=== PATIENT | male | born 1980 | race Caucasian/White ===

== ENCOUNTER 2017-12-27 19:07 | Emergency (ER) | payer OTHER ==
[2017-12-27 19:24] VITALS: BP 119/76; PULSE 73; TEMP 97.8; BMI 23.2
--- NOTE | 2017-12-27 19:24 | PDOC ---
Rapid Medical Evaluation Time Seen by Provider: 12/27/17 19:16 Medical Evaluation: 12/27/17 19:16 I have performed a brief in-person person evaluation of the patient. The patient presents with a chief complaint of pain in right groin, lower back x 5 days radiating to right testicle. Also reports having issues with erectile dysfunction. States pain started intermittently and now worse. Pertinent physical exam findings: NAD unlabored breathing, lungs clear bilateral heart s1s2 abdomen non tender + bowel sounds I have ordered the following: urinalysis, The patient will proceed to the ED for further evaluation. 12/27/17 21:43 Discharge Disposition - Diagnosis Inguinal hernia - Referrals Referrals: Dimitry Reyna MD., [Staff Physician] - Jad Felton MD [Staff Physician] - Call tomorrow Gwen Merino MD [Primary Care Provider] - - Patient Instructions Printed Discharge Instructions: Groin Hernia -- Adult Additional Instructions: Most of the time, the contents of the hernia can be "reduced," or gently pushed back into the belly. Still, there are times when the hernia gets trapped and won 't go back in. If that happens, the tissue that is trapped can get damaged. If you develop pain around a hernia bulge or feel sick return to the ER immediately. follow up with a surgeon on an outpatient - Post Discharge Activity
--- NOTE | 2017-12-27 20:21 | PDOC ---
History of Present Illness - General Chief Complaint: Pain Stated Complaint: PAIN Time Seen by Provider: 12/27/17 19:16 History Source: Patient - History of Present Illness Initial Comments: 12/27/17 20:29 37-year-old male with history of inguinal hernia is complaining of right testicular pain and squeezing in nature and intermittent, bilateral lower back pain and rectal pain. Patient patient also reports erectile dysfunction for 1 month. Denies numbness and tingling to her lower extremities, incontinence of bowel urine, urinary symptoms, nausea vomiting diarrhea, constipation, fever/ chills. Patient reports that for the last 1 week patient has been doing Latin dance class every day which is an usual level of activity for him. Denies lifting/trauma/injury. Past History - Past Medical History Allergies/Adverse Reactions: Allergies Allergy/AdvReac Type Severity Reaction Status Date / Time No Known Allergies Allergy Verified 12/27/17 19:21 Home Medications: Ambulatory Orders Docusate Sodium [Colace] 100 mg PO BID #20 capsule 12/27/17 Phenyleph/Pramoxin/Glycr/W.pet [Preparation H Cream] 26 gm RC QID PRN #1 cream..g. 12/27/17 COPD: Yes Psychiatric Problems: Yes (Depression, anxiety) - Suicide/Smoking/Psychosocial Hx Smoking History: Never smoked Have you smoked in the past 12 months: No Information on smoking cessation initiated: No Hx Alcohol Use: No Drug/Substance Use Hx: No Substance Use Type: None Review of Systems - Review of Systems Able to Perform ROS?: Yes Is the patient limited Yi proficient: No ABD/GI: No: Symptoms Reported, See HPI, Abdominal Distended, Abd. Pain w/ defecation, Blood Streaked Bowels, Constipated, Diarrhea, Difficulty Swallowing , Nausea, Poor Appetite, Poor Fluid Intake, Rectal Bleeding, Vomiting, Indigestion, Abdominal cramping, Tarry Stools, Other : Yes: Testicular Pain (right ), Other (Rectal pain) Musculoskeletal: No: Symptoms Reported, See HPI, Back Pain, Gout, Joint Pain, Joint Swelling, Muscle Pain, Muscle Weakness, Neck Pain, Joint Stiffness, Other Integumentary: No: Symptoms Reported, See HPI, Bruising, Change in Color, Change in Hair/Nails, Dryness, Erythema, Flushing, Lesions, Lumps, Pallor, Pruritus, Rash, Sweating, Other Neurological: No: Symptoms reported, See HPI, Headache, Numbness, Paresthesia, Pre-Existing Deficit, Seizure, Tingling, Tremors, Weakness, Unsteady Gait, Ataxia, Dizziness, Other *Physical Exam - Vital Signs Last Vital Signs Temp Pulse Resp BP Pulse Ox 97.8 F 73 18 119/76 99 12/27/17 19:21 12/27/17 19:21 12/27/17 19:21 12/27/17 19:21 12/27/17 19:21 - Physical Exam General Appearance: Yes: Moderate Distress Respiratory/Chest: positive: Lungs Clear, Normal Breath Sounds Gastrointestinal/Abdominal: positive: Normal Bowel Sounds, Soft Male Genitalia: positive: inguinal hernia (b/l inguinal hernia reducible. noted with cough). negative: testicular tenderness Rectal Exam: positive: heme negative stool, normal rectal tone, hemorrhoids ( Non inflamed external hemorrhoid noted. ) Extremity: positive: Normal Capillary Refill, Normal Inspection, Normal Range of Motion Integumentary: positive: Normal Color, Dry, Warm Neurologic: positive: Fully Oriented, Alert, Normal Mood/Affect ED Treatment Course - LABORATORY CBC & Chemistry Diagram: 12/27/17 20:45 12/27/17 20:45 Progress Note - Progress Note Progress Note: Inguinal hernia Hemorrhoid P; CBC CMP WIll hold CTAP. Scrotal US. : No torsion no testicular mass. b/l hydrocele *DC/Admit/Observation/Transfer Diagnosis at time of Disposition: Inguinal hernia Qualifiers: Obstruction and gangrene presence: with obstruction but without gangrene Laterality: bilateral Recurrence: recurrent Qualified Code(s): K40.01 - Bilateral inguinal hernia, with obstruction, without gangrene, recurrent Hemorrhoids Qualifiers: Hemorrhoid type: unspecified Qualified Code(s): K64.9 - Unspecified hemorrhoids - Discharge Dispostion Disposition: HOME - Prescriptions Prescriptions: Docusate Sodium [Colace] 100 mg PO BID #20 capsule Phenyleph/Pramoxin/Glycr/W.pet [Preparation H Cream] 26 gm RC QID PRN #1 cream..g. PRN Reason: Pain - Referrals Referrals: Jad Felton MD [Staff Physician] - Call tomorrow Gwen Merino MD [Primary Care Provider] - Dimitry Reyna MD., MD [Staff Physician] - - Patient Instructions Printed Discharge Instructions: Groin Hernia -- Adult Additional Instructions: Most of the time, the contents of the hernia can be "reduced," or gently pushed back into the belly. Still, there are times when the hernia gets trapped and won 't go back in. If that happens, the tissue that is trapped can get damaged. If you develop pain around a hernia bulge or feel sick return to the ER immediately. follow up with a surgeon on an outpatient - Post Discharge Activity
[2017-12-27 21:00] LABS: BASO % 1.4 % (0-2.0); EOS % 5.1 % (0-4.5); HEMOGLOBIN 14.5 GM/dL (11.7-16.9); LYMPH % 28.6 % (8-40); MCH 32.3 pg (25.7-33.7); MCHC 34.6 g/dl (32.0-35.9); MEAN CELL VOLUME 93.4 fl (80-96); MEAN PLT VOLUME 8.2 fl (7.5-11.1); MONO % 12.8 % (3.8-10.2); NEUT % 52.1 % (42.8-82.8); PLATELET COUNT 236 K/MM3 (134-434); RDW 13.9 % (11.9-15.9); URINE APPEARANCE CLEAR; URINE BILIRUBIN NEGATIVE (NEGATIVE); URINE BLOOD NEGATIVE (NEGATIVE); URINE COLOR LTYELLOW; URINE GLUCOSE (UA) NEGATIVE (NEGATIVE); URINE KETONE NEGATIVE (NEGATIVE); URINE LEUK ESTERASE NEGATIVE (NEGATIVE); URINE NITRITE NEGATIVE (NEGATIVE); URINE PROTEIN NEGATIVE (NEGATIVE); URINE UROBILINOGEN NEGATIVE mg/dL (0.2-1.0); WHITE BLOOD COUNT 4.5 K/mm3 (4.0-10.0)
[2017-12-27 21:38] LABS: ALBUMIN 4.2 g/dl (3.4-5.0); ALK PHOS 48 U/L (45-117); ANION GAP 6 (8-16); BILIRUBIN,TOTAL 0.3 mg/dL (0.2-1.0); BLOOD UREA NITROGEN 11 mg/dL (7-18); CALCIUM 8.2 mg/dL (8.5-10.1); CHLORIDE 102 mmol/L (98-107); CO2 28 mmol/L (21-32); GLUCOSE,RANDOM 103 mg/dL (74-106); POTASSIUM 4.1 mmol/L (3.5-5.1); SGOT/AST 17 U/L (15-37); SGPT/ALT 31 U/L (12-78); SODIUM 136 mmol/L (136-145); TOT PROT 6.9 g/dl (6.4-8.2)
[2017-12-27] MEDS ORDERED: IBUPROFEN 600 MG TABLET (FP) PO ONE ×2 (22:05→22:07)
== END 2017-12-27 22:13 | disposition home or self-care (01) ==
LOC: JER 19:07
DX: K40.01 Bilateral inguinal hernia, with obstruction, without gangrene, recurrent (principal); K64.9 Unspecified hemorrhoids
CPT/HCPCS: 36415; 76870-TC; 80053; 81003; 85025; 99283-25

== ENCOUNTER 2018-01-05 11:28 | Day surgery (SDC) | payer OTHER ==
--- NOTE | 2018-01-03 15:44 | HP ---
DATE OF ADMISSION: 01/05/2018 DATE OF DICTATION: 12/30/2017 DATE OF SURGERY: 01/05/2018 BRIEF HISTORY: This is a 37-year-old gentleman who 3 days ago (December 27, 2017) presented to [facility] Emergency Room due to pain. Patient states he had pain that was nonspecific in his lower abdomen on both sides. He also had pain in both testicles, more on the right than left, and he had pain in the penile shaft. Patient also had complained of pain between the scrotum and the anus (perineal region). He underwent an ultrasound performed at [facility] of the scrotum. There was no evidence of torsion or acute epididymitis or orchitis radiographically. He had bilateral hydroceles noted. On the exam at that time, he was noted to have bilateral inguinal hernias and was referred for further evaluation of his hernias. Patient states he still has pain in the shaft of his penis and testicles. The lower abdominal pain has now resolved, and the pain in the region of his buttock and perineum is related to hemorrhoids (has been told to this gentleman). He has had no fever, chills, or sweats. He has had no change in bowel habits. PAST MEDICAL HISTORY: No coronary disease, hypertension, or diabetes. PAST SURGICAL HISTORY: None. MEDICATIONS: Mirtazapine. ALLERGIES: None. SOCIAL HISTORY: Patient does not smoke or drink. PHYSICAL EXAMINATION: Abdomen: Soft, nontender, nondistended. He has a [id number]-ec-[id number]-size right inguinal hernia which is easily reducible in the supine position. It is best appreciated in the erect position with Valsalva maneuvers. The right scrotum and testicle are within normal limits. A large amount of laxity in the left groin. I suspect he may have a left inguinal hernia as well. Again, easily reducible. Left scrotum and testicle are within normal limits. Perineum and Rectal Region: Not examined. IMPRESSION/PLAN: Right inguinal hernia, suspect left. This is a 37-year-old gentleman with nonspecific complaints of pain. Therefore , he presented to the emergency room on December 27, 2017. Given his complaints, they are clearly not related to his hernias. I have made it very clear to this gentleman that he does have a right inguinal hernia and I suspect he has a left, but the hernias are not related or causing his discomfort that he describes in the scrotal, testicular, and perineal regions. I do not think his hernias are causing him the lower abdominal discomfort as well. Patient understands this. However, he wants his hernias repaired. We have discussed the pros and cons of hernia repair and various approaches. At this point, we will plan for a laparoscopic bilateral inguinal hernia repair, possible open right. At the time of laparoscopy, I will examine the left side since I think he has a small hernia there and will confirm it at the time of surgery. If no hernia is noted, a piece of mesh will be left in the direct inguinal space for reinforcement. With regard to his nonspecific complaints (testicular, scrotal, penile, perineal, and lower abdomen), these are not related to his hernia, and I do not expect them to improve with hernia repair. Patient understands this very clearly but still wishes to have his hernias repaired. MICHAEL MOBLEY M.D. [id number] MTDD
[2018-01-04 14:10] VITALS: BMI 23.2
[2018-01-05] MEDS ORDERED: TAMSULOSIN HCL 0.4 MG CAP.ER.24H (FP) ONE (12:20)
[2018-01-05] MEDS ORDERED: ceFAZolin SODIUM 1 GM VIAL ONE (12:20)
[2018-01-05] MEDS ORDERED: ONDANSETRON 4 MG/2 ML VIAL ONE (15:46)
[2018-01-05] MEDS ORDERED: LIDOCAINE HCL 2% 100 MG/5 ML DISP.SYRIN ONE (15:46)
[2018-01-05] MEDS ORDERED: DEXAMETHASONE SOD PHOSPHATE 4 MG/1 ML VIAL ONE ×2 (15:46→16:44)
[2018-01-05] MEDS ORDERED: MIDAZOLAM HCL 2 MG/2 ML SINGLE DOSE VIAL ONE (15:47)
[2018-01-05] MEDS ORDERED: PROPOFOL 20 ML ONE (15:47)
[2018-01-05] MEDS ORDERED: ROCURONIUM BROMIDE 50 MG/5 ML VIAL ONE ×2 (15:47→16:42)
[2018-01-05] MEDS ORDERED: SUCCINYLCHOLINE CHLORIDE 200 MG/10 ML VIAL ONE (15:47)
[2018-01-05] MEDS ORDERED: DESFLURANE GAS 240 ML BOTTLE IH ONE (15:54)
[2018-01-05] MEDS ORDERED: ceFAZolin SODIUM 1 GM VIAL IVPB ONE (16:25)
[2018-01-05] MEDS ORDERED: BUPIVACAINE HCL/PF 0.25% (2.5MG/ML) 10 ML VIAL ONE (16:44)
[2018-01-05] MEDS ORDERED: NEOSTIGMINE METHYLSULFATE 0.5 MG/ML - 10 ML MDV ONE (17:07)
[2018-01-05] MEDS ORDERED: GLYCOPYRROLATE 0.2 MG/1 ML VIAL ONE (17:07)
[2018-01-05] MEDS ORDERED: ACETAMINOPHEN 325 MG TABLET (FP) PO PRN (17:21)
[2018-01-05] MEDS ORDERED: ONDANSETRON 4 MG/2 ML VIAL IVPUSH PRN (17:21)
[2018-01-05] MEDS ORDERED: oxyCODONE HCL 5 MG TABLET PO PRN (17:21)
[2018-01-05] MEDS ORDERED: LACTATED RINGERS SOLUTION 1,000 ML IV SCH (17:30)
[2018-01-05 19:26] VITALS: TEMP 98.6
[2018-01-05 20:05] VITALS: BP 135/74; PULSE 80
--- NOTE | 2018-01-06 08:51 | OP ---
DATE OF OPERATION: 01/05/2018 PREOPERATIVE DIAGNOSIS: Right inguinal hernia, suspect left. POSTOPERATIVE DIAGNOSIS: Bilateral indirect inguinal hernias. PROCEDURE PERFORMED: Bilateral laparoscopic inguinal herniorrhaphy with mesh. SURGEON: Jad Felton M.D. CABLE ASSEMBLER: Marcos Hudsno M.D. ANESTHESIA: General. ANESTHESIOLOGIST: Nitza Desai M.D. ESTIMATED BLOOD LOSS: Minimal. SPECIMEN: None. INDICATIONS FOR PROCEDURE: This is a 37-year-old gentleman who presented to [facility] in the early part of December with acute onset of lower abdominal pain. At that time he was diagnosed with having a right inguinal hernia. He was managed medically and subsequently discharged. He is now here for definitive surgical management. DESCRIPTION OF PROCEDURE: The patient was identified and appropriately positioned on the operating room table. After the placement of general anesthesia, the abdomen was prepped and draped in the usual sterile fashion with ChloraPrep. An infraumbilical incision was made and deepened through the subcutaneous tissue. The fascia of the rectus muscle on the right was identified, divided sharply and the muscle split. Under direct vision, a suprapubic 11-mm port was placed, as well as a dissector and structural balloon through the umbilical incision. The following structures on the right side were identified: The pubic tubercle, Korey ligament, inferior epigastric vessels, spermatic cord and lateral abdominal wall. During dissection, the patient had no direct component. He had a moderate-sized indirect inguinal hernia sac reduced back into the preperitoneal space with blunt and sharp dissection. A 4.5 by 6 piece of Versatex mesh was keyholed and placed through the superior port site. The mesh was wrapped around the cord structures laterally to reconstruct the internal ring. Laterally, the mesh was anchored to the anterior abdominal wall and to the lateral abdominal wall. Medially, the mesh was anchored to the anterior abdominal wall, pubic tubercle and Korey ligament. Upon completion of the right side, a similar structure on the left side was identified and dissected in a similar manner. On the left side, there was no direct inguinal hernia. However, he did have an indirect inguinal hernia. This was reduced back into the preperitoneal space. Another 4.5 x 6 piece of Versatex mesh was keyholed and placed through the superior port site. The mesh was wrapped around the cord structures laterally to reconstruct the internal ring. Laterally, the mesh was anchored to the anterior abdominal wall and lateral abdominal wall. Medially, the mesh was well overlapped in the midline, and anchored to the anterior abdominal wall, pubic tubercle and Korey ligament. The preperitoneal space was desufflated under direct vision. The operative field was examined and noted to be hemostatic. The fascia at both port sites was reapproximated with interrupted 0 Vicryl suture. All skin closed with 4-0 subcuticular Biosyn. The mesh used was Versatex 15 x 15 on each side, 2 pieces in total, and the AbsorbaTack to anchor the mesh. At the conclusion of the case, sponge and instrument counts were correct. ATTESTATION: Brief operative note handwritten on the preprinted form. [facility] cleared prior to giving any narcotics. Cedric BARAKAT [id number] MTDD
== END 2018-01-06 20:05 | disposition home or self-care (01) ==
LOC: JASU-SURG 11:28
PROVIDERS: ATTEND Surgery
PROC: 0YUA4JZ Supplement Bilateral Inguinal Region with Synthetic Substitute, Percutaneous Endoscopic Approach (ICD-10-PCS; principal; 2018-01-05 13:00)
DX: K40.20 Bilateral inguinal hernia, without obstruction or gangrene, not specified as recurrent (principal)
CPT/HCPCS: 94760